=== PATIENT | female | born 1980 | race Caucasian/White ===

== ENCOUNTER 2019-02-15 09:17 | Emergency (ER) | payer MEDICAID ==
[~2019-02-15] VITALS: Ht 160 cm; Wt 68.2 kg
[2019-02-15 09:21] VITALS: Ht 160 cm; Wt 68.2 kg
[2019-02-15] MEDS ORDERED: PREDNISONE20 MG PO (10:32)
[2019-02-15 10:39] VITALS: BP 122/64
== END 2019-02-15 10:40 | disposition home or self-care (01) ==
LOC: D.ER 09:17
DX: L24.7 Irritant contact dermatitis due to plants, except food (principal)

== ENCOUNTER 2020-03-02 21:18 | Emergency (ER) | payer MEDICAID ==
[~2020-03-02] VITALS: Ht 162.6 cm; Wt 68.2 kg
[~2020-03-02 21:18] MED LIST: PREDNISONE20 MG PO
[2020-03-02 21:39] VITALS: Ht 162.6 cm; Wt 68.2 kg
[2020-03-02] MEDS ORDERED: VIBRAMYCIN 100100 MG PO (22:31)
[2020-03-02 22:44] VITALS: BP 110/64
== END 2020-03-02 22:44 | disposition home or self-care (01) ==
LOC: D.ER 21:18
DX: T19.2XXA Foreign body in vulva and vagina, initial encounter (principal); X58.XXXA Exposure to other specified factors, initial encounter

== ENCOUNTER 2020-12-15 20:33 | Emergency (ER) | payer MEDICAID ==
[~2020-12-15] VITALS: Ht 162.6 cm; Wt 68.2 kg
[~2020-12-15 20:33] MED LIST changes: +VIBRAMYCIN 100100 MG PO
[2020-12-15 20:53] VITALS: Ht 162.6 cm; Wt 68.2 kg
[2020-12-15 21:17] LABS: BASOPHILS 0.8 % (0-2); EOSINOPHILS 2.7 % (0-7); HEMATOCRIT 36.2 % (36.0-48.0); IMMATURE GRANULOCYTES 0.3 % (0-5); LYMPHOCYTE ABS# 2.38 10x3/uL (1.18-3.74); LYMPHOCYTES 30.7 % (15-50); MCH 29.7 pg (26.0-34.0); MCHC 33.1 g/dL (31.0-37.0); MCV 89.6 fL (80.0-100.0); MEAN PLATELET VOLUME 8.9 fL (7.4-10.4); MONOCYTES 7.2 % (2-11); NEUTROPHIL ABS# 4.53 10x3/uL (1.56-6.13); NEUTROPHILS 58.3 % (40-80); PLATELET COUNT 228 10x3/uL (130-400); RBC 4.04 10x6/uL (4.00-5.40); RDW 12.9 % (11.5-14.5); WBC 7.8 10x3/uL (4.8-10.8)
[2020-12-15 21:27] LABS: ANION GAP 10.3 mmol/L (8-16); CALCIUM 8.1 mg/dL (8.5-10.1); CARBON DIOXIDE 29.2 mmol/L (21.0-32.0); POTASSIUM - SERUM 3.5 mmol/L (3.5-5.1)
[2020-12-15 21:33] LABS: ALBUMIN 3.7 g/dL (3.4-5.0); BILIRUBIN - TOTAL 1.03 mg/dL (0.2-1.3); PROTEIN - SERUM 6.8 g/dL (6.4-8.2)
[2020-12-15 21:44] LABS: BILIRUBIN NEGATIVE (NEGATIVE); KETONE NEGATIVE (NEGATIVE); NITRITE NEGATIVE (NEGATIVE); UROBILINOGEN NORMAL mg/dL (< 2)
[2020-12-15 21:45] LABS: BACTERIA MANY HPF (NONE SEEN); SQUAMOUS EPITHELIAL 0-5 HPF (0-4); WHITE CELLS - URINE 0-5 HPF (0-4)
[2020-12-15 21:46] LABS: HCG URINE NEGATIVE (NEGATIVE)
[2020-12-15] MEDS ORDERED: DIFLUCAN150 MG PO (22:24)
[2020-12-15 22:47] VITALS: BP 92/54
== END 2020-12-15 22:45 | disposition home or self-care (01) ==
LOC: D.ER 20:33
PROVIDERS: Family Medicine
DX: R14.0 Abdominal distension (gaseous) (principal); B37.3 Candidiasis of vulva and vagina